=== PATIENT | male | born 1995 | race Asian ===

== ENCOUNTER 2020-08-25 18:20 | Emergency (ER) | payer SELFPAY ==
[~2020-08-25] VITALS: Ht 175.3 cm; Wt 56.7 kg
[2020-08-25 18:37] VITALS: BP_SYST 122
--- NOTE | 2020-08-25 18:37 | NUR ---
Patient to ER bed 04 to gown for evaluation. Side rails up. Report given to RN
--- NOTE | 2020-08-25 19:00 | NUR ---
ER at bedside examining patient.
--- NOTE | 2020-08-25 19:02 | NUR ---
RECEIVED AND IN ROOM, CALM, ALERT, RESP UNLABORED, C/O LT HIP PAIN S/P INJURY 8 DAYS AGO. NO DISTRESS. STEADY GAIT WITH USE OF CANE
--- NOTE | 2020-08-25 19:21 | NUR ---
OFF TO CT VIA WHEELCHAIR
[2020-08-25 21:28] VITALS: BP_SYST 112
--- NOTE | 2020-08-25 21:28 | NUR ---
Patient given written and verbal discharge instructions and verbalizes understanding. ER MD discussed with patient the results and treatment provided. Patient in stable condition. ID arm band removed. Patient educated on pain management and to follow up with PMD. Opportunity for questions provided and answered. Medication side effect fact sheet provided.
== END 2020-08-25 21:28 | disposition home or self-care (01) ==
LOC: SED 18:20
DX: M25.552 Pain in left hip (principal); W22.8XXA Striking against or struck by other objects, initial encounter; Y93.89 Activity, other specified; Y92.89 Other specified places as the place of occurrence of the external cause; Y99.8 Other external cause status
CPT/HCPCS: 70450-TC; 72192-TC; 99285

== ENCOUNTER 2020-09-07 16:34 | Emergency (ER) | payer SELFPAY ==
[~2020-09-07] VITALS: Ht 175.3 cm; Wt 56.7 kg
[2020-09-07 16:34] VITALS: BP_SYST 118
--- NOTE | 2020-09-07 16:44 | NUR ---
Patient triaged and placed in waiting room. VSS and patient appears in no acute distress at this time. Awaiting available bed, and MD notified of need for MSE.
--- NOTE | 2020-09-07 16:48 | NUR ---
Patient left without being seen.
== END 2020-09-07 16:49 | disposition left against medical advice (07) ==
LOC: SED 16:34
DX: R53.1 Weakness (principal); Z53.21 Procedure and treatment not carried out due to patient leaving prior to being seen by health care provider